=== PATIENT | female | born 1995 | race Caucasian/White ===

== ENCOUNTER 2016-08-05 20:41 | Emergency (ER) | payer SELFPAY ==
[2016-08-05 21:03] VITALS: BP 108/64
--- NOTE | 2016-08-05 21:32 | EDM.PDOC ---
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 Her Partition Assembler is Dr. Alarcon at [facility]. The patient states that she developed right pelvic cramps yesterday afternoon. They were initially coming and going, however, but are now more constant and felt across her lower abdomen, radiating to her lower back. The patient has not identified any modifiers. The patient has not had any vaginal spotting. The patient states that she has cloudy urine, but denies having any urinary symptoms. Her last pelvic ultrasound was at 5 weeks gestation after she experienced some spotting. The ultrasound apparently showed an ovarian cyst but a SLIP. 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: Endocrine/Metabolic History: Reports: Hypothyroidism - Past Surgical History HEENT Surgical History: Reports: Adenoidectomy, Tonsillectomy Social & Family History - Family History Family Medical History: Noncontributory - Tobacco Use Smoking Status *Q: Former Smoker Years of Tobacco use: 1 Packs/Tins Daily: 0.1 Second Hand Smoke Exposure: Yes - Caffeine Use Caffeine Use: Reports: Soda - Alcohol Use Alcohol Use History: Yes Alcohol Use Frequency: Socially - Recreational Drug Use Recreational Drug Use: No - Living Situation & Occupation Living situation: Reports: single, with significant other (Boyfriend + his mother) 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) ED ROS GENERAL - Review of Systems Review Of Systems: See Below Constitutional: Reports: no symptoms HEENT: Reports: No symptoms Respiratory: Reports: No Symptoms Cardiovascular: Reports: No symptoms Endocrine: Reports: no symptoms GI/Abdominal: Reports: No symptoms : Reports: no symptoms Musculoskeletal: Reports: no symptoms Skin: Reports: no symptoms Neurological: Reports: No Symptoms Psychiatric: Reports: No symptoms Hematologic/Lymphatic: Reports: no symptoms Immunologic: Reports: no symptoms ED EXAM - Physical Exam Exam: See Below Exam Limited By: No limitations General Appearance: alert, WD/WN, no apparent distress Eye Exam: bilateral eye: EOMI, normal inspection Ears: normal external exam, hearing grossly normal Nose: normal inspection, no blood Throat/Mouth: Normal inspection, Normal lips, Normal voice, No airway compromise Head: atraumatic, normocephalic Neck: normal inspection, full range of motion Respiratory/Chest: no respiratory distress, lungs clear, normal breath sounds, no accessory muscle use Cardiovascular: normal peripheral pulses, regular rate, rhythm, no edema, no gallop, no JVD, no murmur, no rub GI/Abdominal: normal bowel sounds, soft, no organomegaly, no distention, no abnormal bruit, no mass, tender (To the entire lower abdomen, particularly suprapubic. Nontender to the upper abdomen.), gravid uterus (Consistent with dates) Back Exam: normal inspection, full range of motion. No: CVA tenderness (L), CVA tenderness (R) Extremities: normal inspection, normal range of motion, no pedal edema, normal capillary refill Neurological: alert, oriented, normal cognition, no motor/sensory deficits Psychiatric: normal affect Skin Exam: Warm, Dry, Intact, Normal color, No rash Lymphatic: no adenopathy Course - Vital Signs Last Recorded V/S: Last Vital Signs Temp 36.7 C 08/05/16 20:58 Pulse 86 08/05/16 20:58 Resp 12 08/05/16 20:58 BP 108/64 08/05/16 20:58 Pulse Ox 99 08/05/16 20:58 - Orders/Labs/Meds Orders: Active Orders 24 hr Category Date Time Status Heart Tones [RC] ASDIRECTED Care 08/05/16 21:21 Active Labs: Laboratory Tests 08/05/16 Range/Units 21:20 Urine Color Yellow (Yellow) Urine Appearance Slt cloudy H (Clear) Urine pH 7.5 (5.0-8.0) Ur Specific [place] 1.020 (1.005-1.030) Urine Protein Negative (Negative) Urine Glucose (UA) Negative (Negative) Urine Ketones Negative (Negative) Urine Occult Blood Negative (Negative) Urine Nitrite Negative (Negative) Urine Bilirubin Negative (Negative) Urine Urobilinogen 0.2 (0.2-1.0) Ur Leukocyte Esterase Negative (Negative) Urine RBC 0-5 (0-5) /hpf Urine WBC 0-5 (0-5) /hpf Ur Epithelial Cells Not Reportable Ur Squamous Epith Cells 0-5 (0-5) /hpf Amorphous Sediment Few H (NOT SEEN) /hpf Urine Bacteria Few (FEW) /hpf Urine Mucus Not seen (FEW) /hpf - Re-Assessments/Exams Free Text/Narrative Re-Assessment/Exam: 08/05/16 21:30 heart tones are 147 bpm. 08/05/16 22:08 The patient's urinalysis is negative - she does not have a UTI. Her pain is most likely due to round ligament pain, however, further investigation would require a CT scan, which, of course, I do not recommend. I do not feel that a transabdominal ultrasound is of any use given her history and physical examination. The patient is understanding. Departure - Departure Time of Disposition: 22:09 Disposition: Home, Self-Care 01 Condition: good Clinical Impression: Pain of round ligament during Referrals: Leyla Alarcon MD [Primary Care Provider] - Forms: ED Department Discharge Additional Instructions: You were seen in the emergency room tonight for pelvic pain during her . Workup in the ER included a urinalysis and heart tones by Doppler. Your urinalysis is normal - you do not have a urinary tract infection, and the Doppler found heart tones at 147 beats per minute. This is a normal rate for 16 week gestation fetus. Your pelvic pain is MOST LIKELY due to stretching of the round ligaments attached to your uterus. This condition is very common during . We recommend you take [id number] Tylenol as needed for discomfort. You are not permitted to take ibuprofen during . We recommend you followup with your Partition Assembler, Dr. Alarcon, at the next available appointment. If any other problems, please do not hesitate to return to the ER. - My Orders Last 24 Hours: My Active Orders 08/05/16 21:21 Heart Tones [RC] ASDIRECTED - Assessment/Plan Last 24 Hours: My Active Orders 08/05/16 21:21 Heart Tones [RC] ASDIRECTED
== END 2016-08-05 22:15 | disposition home or self-care (01) ==
LOC: JD.ED 20:41
DX: O26.892 Other specified pregnancy related conditions, second trimester (principal); R10.2 Pelvic and perineal pain; Z3A.16 16 weeks gestation of pregnancy; Z87.891 Personal history of nicotine dependence; Z98.890 Other specified postprocedural states; Z79.899 Other long term (current) drug therapy
CPT/HCPCS: 81001; 99283; 99284

== ENCOUNTER 2016-08-12 06:56 | Emergency (ER) | payer MEDICAID ==
[2016-08-12 07:07] VITALS: BP 117/81
[2016-08-12] MEDS ORDERED: Sodium Chloride 0.9% 10 ML Syringe FLUSH PRN (07:35)
[2016-08-12] MEDS ORDERED: Metoclopramide 10 MG/2 ML SDV IVPUSH ONE (07:35)
[2016-08-12] MEDS ORDERED: Sodium Chloride 0.9% 1,000 ML IV STA (07:35)
--- NOTE | 2016-08-12 08:41 | EDM.PDOC ---
ED HPI Trauma - General Chief Complaint: Upper Extremity Injury/Pain Stated Complaint: LEFT ARM NUMB; 17 WKS PG Time Seen by Provider: 08/12/16 07:14 Source: Reports: Patient History Limitations: Reports: No limitations - History of Present Illness INITIAL COMMENTS - FREE TEXT/NARRATIVE: The patient presents with left arm pain and numbness. This started early this morning at 0145. She woke up with it. She denies any trauma. She is G1 at 17 weeks gestation. She had an US at 5 weeks for spotting and everything was okay. She also had nausea this morning. She had nausea for the 1st trimester but that was better until today. She has no fever, chills, cough, shortness of breath, or chest pain. She denies abdominal pain, dysuira or diarrhea. She has no other health problems. Occurred When: this morning (0145) Occurred Where: home Method of Injury: unknown Severity: moderate Pain/Injury Location: Reports: upper extremity, left (arm pain and numbness) Consciousness: Reports: no loss of consciousness Associated Symptoms: Reports: nausea/vomiting. 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: Endocrine/Metabolic History: Reports: Hypothyroidism - Past Surgical History HEENT Surgical History: Reports: Adenoidectomy, Tonsillectomy Social & Family History - Family History Family Medical History: Noncontributory - Tobacco Use Smoking Status *Q: Never Smoker Years of Tobacco use: 1 Packs/Tins Daily: 0.1 Second Hand Smoke Exposure: Yes - Caffeine Use Caffeine Use: Reports: Coffee - Recreational Drug Use Recreational Drug Use: No - Living Situation & Occupation Living situation: Reports: single, with significant other (Boyfriend + his mother) Occupation: employed ([employer]) Review of Systems - Review of Systems Review Of Systems: See Below Constitutional: Reports: no symptoms Eyes: Reports: no symptoms Ears: Reports: no symptoms Nose: Reports: no symptoms Mouth/Throat: Reports: no symptoms Respiratory: Reports: No Symptoms Cardiovascular: Reports: no symptoms GI/Abdominal: Reports: Nausea. Denies: Abdominal pain, Diarrhea, Vomiting Genitourinary: Reports: no symptoms Musculoskeletal: Reports: other (Left arm pain and numbness) Trauma Exam - Physical Exam Exam: See Below Exam Limited By: No limitations General Appearance: Reports: alert, no apparent distress Head: Reports: atraumatic, normocephalic Ears: Reports: normal external exam Nose: Reports: normal inspection Neck: Reports: non-tender, normal alignment, normal inspection Respiratory Exam: Reports: no respiratory distress, lungs clear, normal breath sounds Cardiovascular: Reports: regular rate, rhythm, no edema, no murmur GI/Abdominal: Reports: soft, non tender, other (gravid uterus mid way between pubis and umbilicus) Extremities: Reports: other (no pain upon palpation to the left arm. She has good pulses but decreased gross sensation.) Course - Vital Signs Last Recorded V/S: Last Vital Signs Temp 97.4 F 08/12/16 07:04 Pulse 75 08/12/16 07:04 Resp 18 08/12/16 07:04 BP 117/81 08/12/16 07:04 Pulse Ox 99 08/12/16 07:04 - Orders/Labs/Meds Orders: Active Orders 24 hr Category Date Time Status Peripheral IV Care [RC] . DIRECTED Care 08/12/16 07:35 Active Sodium Chloride 0.9% [Saline Flush] Med 08/12/16 07:35 Active 10 ml FLUSH ASDIRECTED PRN ED Antiemetic Medication Reflex [OM.PC] Stat Oth 08/12/16 07:35 Ordered Peripheral IV Insertion Adult [OM.PC] Stat Oth 08/12/16 07:35 Ordered Medication Orders Sodium Chloride (Saline Flush) 10 ml FLUSH ASDIRECTED PRN PRN Reason: Keep Vein Open Last Admin: 08/12/16 07:52 Dose: 10 ml Labs: Laboratory Tests 08/12/16 08/12/16 08/12/16 Range/Units 07:40 07:40 08:30 WBC 14.12 H (3.98-10.04) K/mm3 RBC 4.22 (3.98-5.22) M/mm3 Hgb 12.6 (11.2-15.7) gm/L Hct 37.0 (34.1-44.9) % MCV 87.7 (79.4-94.8) fl MCH 29.9 (25.6-32.2) pg MCHC 34.1 (32.2-35.5) g/dl RDW Std Deviation 41.7 (36.4-46.3) fL Plt Count 244 (182-369) K/mm3 MPV 9.8 (9.4-12.3) fl Neut % (Auto) 81.2 H (34.0-71.1) % Lymph % (Auto) 11.5 L (19.3-51.7) % [place] % (Auto) 6.2 (4.7-12.5) % Eos % (Auto) 0.6 L (0.7-5.8) Baso % (Auto) 0.1 (0.1-1.2) % Neut # (Auto) 11.48 H (1.56-6.13) K/mm3 Lymph # (Auto) 1.62 (1.18-3.74) K/mm3 [place] # (Auto) 0.87 H (0.24-0.36) K/mm3 Eos # (Auto) 0.08 (0.04-0.36) K/mm3 Baso # (Auto) 0.02 (0.01-0.08) K/mm3 Sodium 137 (136-145) mEq/L Potassium 3.9 (3.5-5.1) mEq/L Chloride 104 (98-107) mEq/L Carbon Dioxide 24 (21-32) mEq/L Anion Gap 12.9 (5-15) BUN 7 (7-18) mg/dL Creatinine 0.6 (0.55-1.02) mg/dL Est Cr Clr Drug Dosing TNP Estimated GFR (MDRD) > 60 (>60) mL/min BUN/Creatinine Ratio 11.7 L (14-18) Glucose 82 (74-106) mg/dL Calcium 8.8 (8.5-10.1) mg/dL Total Bilirubin 0.5 (0.2-1.0) mg/dL AST 21 (15-37) U/L ALT 25 (14-59) U/L Alkaline Phosphatase 66 (46-116) U/L Total Protein 6.8 (6.4-8.2) g/dl Albumin 3.3 L (3.4-5.0) g/dl Globulin 3.5 gm/dL Albumin/Globulin Ratio 0.9 L (1-2) Lipase 68 L (73-393) U/L Urine Color Yellow (Yellow) Urine Appearance Clear (Clear) Urine pH 7.0 (5.0-8.0) Ur Specific [place] 1.020 (1.005-1.030) Urine Protein Negative (Negative) Urine Glucose (UA) Negative (Negative) Urine Ketones 1+ H (Negative) Urine Occult Blood Negative (Negative) Urine Nitrite Negative (Negative) Urine Bilirubin Negative (Negative) Urine Urobilinogen 0.2 (0.2-1.0) Ur Leukocyte Esterase Negative (Negative) Urine RBC Not seen (0-5) /hpf Urine WBC 0-5 (0-5) /hpf Ur Epithelial Cells 0-5 (0-5) /hpf Urine Bacteria Few (FEW) /hpf Urine Mucus Not seen (FEW) /hpf Meds: Medications Generic Name Dose Route Start Last Admin Trade Name Freq PRN Reason Stop Dose Admin Sodium Chloride 10 ml 08/12/16 07:35 08/12/16 07:52 Saline Flush FLUSH 10 ml ASDIRECTED PRN Administration Keep Vein Open Discontinued Medications Generic Name Dose Route Start Last Admin Trade Name Freq PRN Reason Stop Dose Admin Sodium Chloride 1,000 mls @ 1,000 mls/hr 08/12/16 07:35 08/12/16 07:50 Normal Saline IV 08/12/16 08:34 1,000 mls/hr .BOLUS STA Administration Metoclopramide HCl 10 mg 08/12/16 07:35 08/12/16 07:51 Reglan IVPUSH 08/12/16 07:36 10 mg ONETIME ONE Administration - Re-Assessments/Exams Free Text/Narrative Re-Assessment/Exam: 08/12/16 08:47 I ordered an IV NS 1L bolus, reglan 10mg IV, labs and UA. 08/12/16 09:22 Her WBC is elevated at 14.12. Her CMP looks good. Her UA shows no UTI. FHTs were 152. Her pain is better but she still has some numbness in her arm. She has no neck pain with it. She has no edema so I am not concerned about a DVT. I am not exactly sure why she has numbness and pain in her left arm. I will give her some reglan for the nausea and follow up with neurology. Departure - Departure Time of Disposition: 09:35 Disposition: Home, Self-Care 01 Condition: good Clinical Impression: Left arm pain, Left arm numbness, Nausea Qualifiers: Weeks of gestation: 17 weeks Qualified Code(s): Z3A.17 - 17 weeks gestation of Prescriptions: Metoclopramide HCl [Reglan] 10 mg PO Q6HR PRN #30 tablet PRN Reason: Nausea/Vomiting Referrals: Leyla Alarcon MD [Primary Care Provider] - 1 Week Meño Camargo MD [Physician] - 1 Week Forms: ED Department Discharge Additional Instructions: Take the reglan as needed for nausea and vomiting. Drink plenty of fluids. Take tylenol as needed for arm pain. Please return if you are worse. Follow up with Dr Camargo a neurologist at [facility] in [place]. - My Orders Last 24 Hours: My Active Orders 08/12/16 07:35 Peripheral IV Care [RC] . DIRECTED Sodium Chloride 0.9% [Saline Flush] 10 ml FLUSH ASDIRECTED PRN ED Antiemetic Medication Reflex [OM.PC] Stat Peripheral IV Insertion Adult [OM.PC] Stat - Assessment/Plan Last 24 Hours: My Active Orders 08/12/16 07:35 Peripheral IV Care [RC] . DIRECTED Sodium Chloride 0.9% [Saline Flush] 10 ml FLUSH ASDIRECTED PRN ED Antiemetic Medication Reflex [OM.PC] Stat Peripheral IV Insertion Adult [OM.PC] Stat
== END 2016-08-12 09:57 | disposition home or self-care (01) ==
LOC: JD.ED 06:56
DX: O99.89 Other specified diseases and conditions complicating pregnancy, childbirth and the puerperium (principal); M79.602 Pain in left arm; R20.0 Anesthesia of skin; R11.0 Nausea; Z98.890 Other specified postprocedural states; O99.282 Endocrine, nutritional and metabolic diseases complicating pregnancy, second trimester; E03.9 Hypothyroidism, unspecified; O99.332 Smoking (tobacco) complicating pregnancy, second trimester; F17.210 Nicotine dependence, cigarettes, uncomplicated; Z3A.17 17 weeks gestation of pregnancy; Z79.899 Other long term (current) drug therapy
CPT/HCPCS: 36415; 80053; 81001; 83690; 85025; 96374; 99284; J2765; J7040; J7050

== ENCOUNTER 2017-04-28 13:59 | Emergency (ER) | payer MEDICAID ==
[2017-04-28 14:11] VITALS: BP 119/84
[2017-04-28] MEDS ORDERED: Sodium Chloride 0.9% 10 ML Syringe FLUSH PRN (14:28)
--- NOTE | 2017-04-28 14:32 | EDM.PDOC ---
ED HPI GENERAL MEDICAL PROBLEM - General Chief Complaint: Abdominal Pain Stated Complaint: NAUSEA Time Seen by Provider: 04/28/17 14:29 Source of Information: Reports: Patient History Limitations: Reports: No Limitations - History of Present Illness INITIAL COMMENTS - FREE TEXT/NARRATIVE: Patient is a 21-year-old female who presents ED complaining of a three-day history of lower abdominal cramping with temisus. States the sensation to defecate has increased significantly since onset. States last night developed blood within her stools. Low volume diarrhea with minimal blood present. Stool is mucousy. Discomfort rated a 4 out of 10 on stop. There's been no ingestion of bad or questionable food. Recent out of country travel. She denies any fever/ chills, nausea/vomiting, pain with urination, or recent sick contact. There is no family history of Crohn's disease or ulcerative colitis.She has been breast feeding since December. Cannot remember her last menstrual cycle and denies being . She is sexually active but uses condoms. She denies recent antibiotic use. Past medical history includes hypothyroidism and currently taking levothyroxine 50 g every day. Surgical history noncontributory. She does not smoke, use alcohol, or recreational drugs. She has no primary care provider here locally. Abdomen Pain Score (Numeric/FACES): 5 - Related Data Allergies Allergy/AdvReac Type Severity Reaction Status Date / Time No Known Allergies Allergy Verified 08/12/16 07:07 Home Meds: Home Meds Levothyroxine Sodium [Synthroid] 75 mcg PO DAILY 08/24/15 [History] metroNIDAZOLE [Flagyl] 500 mg PO ONETIME #1 tablet 04/28/17 [Rx] metroNIDAZOLE [Flagyl] 500 mg PO Q12H #27 tablet 04/28/17 [Rx] Past Medical History [employer] History: Reports: Endocrine/Metabolic History: Reports: Hypothyroidism - Past Surgical History HEENT Surgical History: Reports: Adenoidectomy, Tonsillectomy Social & Family History - Family History Family Medical History: Noncontributory - Tobacco Use Smoking Status *Q: Never Smoker Years of Tobacco use: 1 Packs/Tins Daily: 0.1 Second Hand Smoke Exposure: Yes - Caffeine Use Caffeine Use: Reports: Soda - Recreational Drug Use Recreational Drug Use: No - Living Situation & Occupation Living situation: Reports: Single, with Significant Other Occupation: Employed ED ROS GENERAL - Review of Systems Review Of Systems: ROS reveals no pertinent complaints other than HPI. ED EXAM, GI/ABD - Physical Exam Exam: See Below Exam Limited By: No Limitations General Appearance: Alert, WD/WN, No Apparent Distress Ears: Hearing Grossly Normal Nose: Normal Inspection Throat/Mouth: Normal Inspection, Normal Oropharynx, Normal Voice, No Airway Compromise Neck: Normal Inspection, Supple Respiratory/Chest: No Respiratory Distress, Lungs Clear, Normal Breath Sounds, No Accessory Muscle Use Cardiovascular: Normal Peripheral Pulses, Regular Rate, Rhythm GI/Abdominal Exam: Soft, No Organomegaly, No Distention, Tender (Mild tenderness to the suprapubic region), Abnormal Bowel Sounds (Hyperactive) Back Exam: Normal Inspection Neurological: Alert, Oriented, CN II-XII Intact, Normal Cognition, No Motor/ Sensory Deficits Psychiatric: Normal Affect, Normal Mood Skin Exam: Warm, Dry, Intact, Normal Color, No Rash Course - Vital Signs Last Recorded V/S: Last Vital Signs Temp 96.5 F 04/28/17 14:07 Pulse 52 L 04/28/17 14:07 Resp 18 04/28/17 14:07 BP 119/84 04/28/17 14:07 Pulse Ox 96 04/28/17 14:07 - Orders/Labs/Meds Orders: Active Orders 24 hr Category Date Time Status Fecal Occult Blood Collection [RC] ASDIRECTED Care 04/28/17 14:28 Active Peripheral IV Care [RC] . DIRECTED Care 04/28/17 14:28 Active CULTURE STOOL + SHIGATOX [RM] Stat Lab 04/28/17 14:40 Received Peripheral IV Insertion Adult [OM.PC] Stat Oth 04/28/17 14:28 Ordered Labs: Laboratory Tests 04/28/17 04/28/17 04/28/17 Range/Units 14:40 14:53 14:53 WBC 8.13 (3.98-10.04) K/mm3 RBC 4.94 (3.98-5.22) M/mm3 Hgb 13.5 (11.2-15.7) gm/L Hct 41.1 (34.1-44.9) % MCV 83.2 (79.4-94.8) fl MCH 27.3 (25.6-32.2) pg MCHC 32.8 (32.2-35.5) g/dl RDW Std Deviation 41.5 (36.4-46.3) fL Plt Count 260 (182-369) K/mm3 MPV 10.4 (9.4-12.3) fl Neut % (Auto) 71.6 H (34.0-71.1) % Lymph % (Auto) 16.1 L (19.3-51.7) % Morris % (Auto) 10.8 (4.7-12.5) % Eos % (Auto) 1.0 (0.7-5.8) Baso % (Auto) 0.4 (0.1-1.2) % Neut # (Auto) 5.82 (1.56-6.13) K/mm3 Lymph # (Auto) 1.31 (1.18-3.74) K/mm3 Morris # (Auto) 0.88 H (0.24-0.36) K/mm3 Eos # (Auto) 0.08 (0.04-0.36) K/mm3 Baso # (Auto) 0.03 (0.01-0.08) K/mm3 Sodium 144 (136-145) mEq/L Potassium 3.7 (3.5-5.1) mEq/L Chloride 107 (98-107) mEq/L Carbon Dioxide 25 (21-32) mEq/L Anion Gap 15.7 H (5-15) BUN 14 (7-18) mg/dL Creatinine 0.8 (0.55-1.02) mg/dL Est Cr Clr Drug Dosing 92.79 mL/min Estimated GFR (MDRD) > 60 (>60) mL/min BUN/Creatinine Ratio 17.5 (14-18) Glucose 71 L (74-106) mg/dL Calcium 9.6 (8.5-10.1) mg/dL Total Bilirubin 1.3 H (0.2-1.0) mg/dL AST 22 (15-37) U/L ALT 21 (14-59) U/L Alkaline Phosphatase 93 (46-116) U/L C-Reactive Protein 0.4 (<1.0) mg/dL Total Protein 8.3 H (6.4-8.2) g/dl Albumin 4.2 (3.4-5.0) g/dl Globulin 4.1 gm/dL Albumin/Globulin Ratio 1.0 (1-2) TSH 3rd Generation 1.684 (0.516-4.13) uIU/mL HCG, Qual (NEGATIVE) Urine Color (Yellow) Urine Appearance (Clear) Urine pH (5.0-8.0) Ur Specific [place] (1.005-1.030) Urine Protein (Negative) Urine Glucose (UA) (Negative) Urine Ketones (Negative) Urine Occult Blood (Negative) Urine Nitrite (Negative) Urine Bilirubin (Negative) Urine Urobilinogen (0.2-1.0) Ur Leukocyte Esterase (Negative) Urine RBC (0-5) /hpf Urine WBC (0-5) /hpf Ur Epithelial Cells (0-5) /hpf Urine Bacteria (FEW) /hpf Urine Mucus (FEW) /hpf C.difficile [id number] Presumptive negative C. difficile Tox (PCR) Positive H 04/28/17 04/28/17 Range/Units 14:53 14:53 WBC (3.98-10.04) K/mm3 RBC (3.98-5.22) M/mm3 Hgb (11.2-15.7) gm/L Hct (34.1-44.9) % MCV (79.4-94.8) fl MCH (25.6-32.2) pg MCHC (32.2-35.5) g/dl RDW Std Deviation (36.4-46.3) fL Plt Count (182-369) K/mm3 MPV (9.4-12.3) fl Neut % (Auto) (34.0-71.1) % Lymph % (Auto) (19.3-51.7) % Morris % (Auto) (4.7-12.5) % Eos % (Auto) (0.7-5.8) Baso % (Auto) (0.1-1.2) % Neut # (Auto) (1.56-6.13) K/mm3 Lymph # (Auto) (1.18-3.74) K/mm3 Morris # (Auto) (0.24-0.36) K/mm3 Eos # (Auto) (0.04-0.36) K/mm3 Baso # (Auto) (0.01-0.08) K/mm3 Sodium (136-145) mEq/L Potassium (3.5-5.1) mEq/L Chloride (98-107) mEq/L Carbon Dioxide (21-32) mEq/L Anion Gap (5-15) BUN (7-18) mg/dL Creatinine (0.55-1.02) mg/dL Est Cr Clr Drug Dosing mL/min Estimated GFR (MDRD) (>60) mL/min BUN/Creatinine Ratio (14-18) Glucose (74-106) mg/dL Calcium (8.5-10.1) mg/dL Total Bilirubin (0.2-1.0) mg/dL AST (15-37) U/L ALT (14-59) U/L Alkaline Phosphatase (46-116) U/L C-Reactive Protein (<1.0) mg/dL Total Protein (6.4-8.2) g/dl Albumin (3.4-5.0) g/dl Globulin gm/dL Albumin/Globulin Ratio (1-2) TSH 3rd Generation (0.516-4.13) uIU/mL HCG, Qual Negative (NEGATIVE) Urine Color Yellow (Yellow) Urine Appearance Clear (Clear) Urine pH 5.5 (5.0-8.0) Ur Specific [place] > or = 1.030 (1.005-1.030) Urine Protein Negative (Negative) Urine Glucose (UA) Negative (Negative) Urine Ketones 2+ H (Negative) Urine Occult Blood Trace-lysed H (Negative) Urine Nitrite Negative (Negative) Urine Bilirubin 1+ H (Negative) Urine Urobilinogen 0.2 (0.2-1.0) Ur Leukocyte Esterase Negative (Negative) Urine RBC 0-5 (0-5) /hpf Urine WBC 0-5 (0-5) /hpf Ur Epithelial Cells 0-5 (0-5) /hpf Urine Bacteria Few (FEW) /hpf Urine Mucus Few (FEW) /hpf C.difficile [id number]-[id number] C. difficile Tox (PCR) Meds: Medications Discontinued Medications Generic Name Dose Route Start Last Admin Trade Name Freq PRN Reason Stop Dose Admin Sodium Chloride 1,000 mls @ 150 mls/hr 04/28/17 15:00 04/28/17 14:54 Normal Saline IV 150 mls/hr ASDIRECTED MONTRELL Administration Metronidazole 500 mg 04/28/17 15:56 04/28/17 16:09 Flagyl PO 04/28/17 15:57 500 mg ONETIME ONE Administration Metronidazole Confirm 04/28/17 17:05 04/28/17 17:02 Flagyl Administered 04/28/17 17:06 500 mg Dose Administration 500 mg .ROUTE .STK-MED ONE Sodium Chloride 10 ml 04/28/17 14:28 04/28/17 14:49 Saline Flush FLUSH 10 ml ASDIRECTED PRN Administration Keep Vein Open - Re-Assessments/Exams Free Text/Narrative Re-Assessment/Exam: Stool sample had blood present. Hemoccult test was positive. Peripheral IV started with normal saline 150 milliliters per hour. Initial labs include CBC, chem 14, CRP, hCG, TSH, UA, C. difficile, stool wbc's, and stool culture. 04/28/17 15:57 C Diff Positive. Ordered flagyl 500mg PO. 04/28/17 16:14 Labs reviewed: White blood cell count 8.13, hemoglobin 13.5, neutrophil percentage is 71.6, neutrophil #5.82, sodium 144, potassium 3.7, AG 15.7, creatinine 0.8, CRP 0.4, TSH 1.684, hCG negative. Stool WBCs and many. Medication given. Discussed results of labs with patient. Will discharge patient home with instructions as documented. 04/28/17 16:57 Will send flagyl 500mg tab x1 home with patient. Departure - Departure Time of Disposition: 16:14 Disposition: Home, Self-Care 01 Condition: Good Clinical Impression: C. difficile diarrhea - Discharge Information Prescriptions: metroNIDAZOLE [Flagyl] 500 mg PO Q12H #27 tablet metroNIDAZOLE [Flagyl] 500 mg PO ONETIME #1 tablet Instructions: Clostridium Difficile Infection, [id number] Referrals: PCP,None [Primary Care Provider] - Forms: ED Department Discharge, ED Return to Work/School Form Additional Instructions: As discussed have Clostridium difficile. This is a bacterial infection within the colon. Treatment is Flagyl one tab twice a day. Continue to utilize good hand hygiene including: Wash hands thoroughly with soap and warm water after using the bathroom and before eating. Suggest having-your own bathroom to utilize free from anybody else using. Cleanse bathroom surfaces with mixture of bleach and water. Do not breast feed while on flagyl. Possible diarrhea and oral thrush may occur. Followup with a PCP at [facility] this coming week for reevaluation. Return to the E.D. for any new or worsening symptoms. - My Orders Last 24 Hours: My Active Orders 04/28/17 14:28 Fecal Occult Blood Collection [RC] ASDIRECTED Peripheral IV Care [RC] . DIRECTED Peripheral IV Insertion Adult [OM.PC] Stat 04/28/17 14:40 CULTURE STOOL + SHIGATOX [RM] Stat - Assessment/Plan Last 24 Hours: My Active Orders 04/28/17 14:28 Fecal Occult Blood Collection [RC] ASDIRECTED Peripheral IV Care [RC] . DIRECTED Peripheral IV Insertion Adult [OM.PC] Stat 04/28/17 14:40 CULTURE STOOL + SHIGATOX [RM] Stat
[2017-04-28] MEDS ORDERED: Sodium Chloride 0.9% 1,000 ML IV SCH (15:00)
[2017-04-28] MEDS ORDERED: metroNIDAZOLE 500 MG Tab PO ONE (15:56)
[2017-04-28] MEDS ORDERED: metroNIDAZOLE 500 MG Tab ONE (17:05)
== END 2017-04-28 17:07 | disposition home or self-care (01) ==
LOC: JD.ED 13:59
DX: A04.72 Enterocolitis due to Clostridium difficile, not specified as recurrent (principal); Z79.899 Other long term (current) drug therapy
CPT/HCPCS: 36415; 80053; 81001; 82270; 84443; 84703; 85025; 86140; 87046; 87493; 89055; 96360; 99284; A9270; J7040; J7050; 87427; 99283